=== PATIENT | male | born 1940 | race Caucasian/White ===

== ENCOUNTER 2024-12-31 10:20 | Inpatient (IN) ==
[2024-12-31 12:52] LABS: MEAN PLATELET VOLUME 8.1 fL (7.4-11.0); RED CELL DISTRIBUTION WIDTH 20.2 % (11.6-16.5)
[2024-12-31 12:54] VITALS: BMI 31.6
[2024-12-31 13:01] LABS: INR 1.38 (0.8-1.3)
[2024-12-31 13:08] LABS: COR CA(FOR HYPOALB) 8.8 mg/dL (8.5-10.1); CREATININE 2.96 mg/dL (0.70-1.30); eGFR NON BLACK RACES 22 (>60)
[2024-12-31 13:25] LABS: PLATELET MORPHOLOGY COMMENT NORMAL (NORMAL)
[2024-12-31] MEDS ORDERED: CONSULT PHARMACY - POTASSIUM & MAGNESIUM XX SCH (15:00)
[2024-12-31] MEDS ORDERED: PHARMACY CONSULT XX SCH (15:00)
--- NOTE | 2024-12-31 15:30 | EKG ---
Test Reason : sob Blood Pressure : */* mmHG Vent. Rate : 86 BPM Atrial Rate : 86 BPM P-R Int : 160 ms QRS Dur : 168 ms QT Int : 480 ms P-R-T Axes : 77 179 133 degrees QTc Int : 574 ms Atrial-sensed ventricular-paced rhythm Biventricular pacemaker detected Abnormal ECG When compared with ECG of 17-FEB-2023 10:42, Electronic ventricular pacemaker has replaced Sinus rhythm Confirmed by Urbano Amato MD ([id number]) on 12/31/2024 5:46:36 PM Referred By: Confirmed By: Urbano Amato MD
[2024-12-31] MEDS: K-DUR TAB 20 MEQ PO ONE (15:38)
[2024-12-31] MEDS: KLONOPIN TAB 0.5 MG PO ONE (15:38)
[2024-12-31] MEDS: LASIX IVP SCH (15:38)
[2024-12-31 16:06] LABS: BLOOD/HEMOGLOBIN,URINE NEGATIVE (NEGATIVE); LEUKOCYTE ESTERASE ,URINE 1+ (NEGATIVE); NITRITES,URINE NEGATIVE (NEGATIVE)
[2024-12-31 16:08] LABS: APPEARANCE,URINE CLEAR (CLEAR)
[2024-12-31 16:12] LABS: HYALINE CASTS, URINE FEW /LPF (NEGATIVE); SQUAMOUS EPITHELIAL CELL,UR RARE /HPF (NEGATIVE)
--- NOTE | 2024-12-31 19:20 | DR.H&P ---
H&P History & Physical for Day of: H&P Date: 12/31/24 Chief Complaint Chief Complaint: abdominal distention bilateral lower extremities swelling shortness of breath History of Present Illness History of Present Illness: Patient is a 84-year-old male with a past medical history of AICD, CHF, CAD, type 2 diabetes mellitus, and CKD presenting with bilateral lower extremity swelling, shortness of breath, and abdominal distention. Patient was recently discharged from [facility] in [place] last . He was admitted there for GI bleed. He had EGD and colonoscopy and per daughter there were no findings. His blood pressure remained in the lower range and his hemoglobin remained stable after home medications were held including antihypertensive medications and aspirin and Plavix. On discharge he was prescribed Lasix 40 mg twice daily, however he admits to not taking it but at 20 mg daily that was his original home dose. Per daughter, cardiologyDr. Bee office was contacted and they were told due to blood pressure readings to continue to hold antihypertensive medications at this time. Labs/imaging: WBC 7.8, hemoglobin 9.0, platelets 185, sodium 138, potassium 3.3, creatinine 2.96, glucose 109, BNP 3010, UA negative, chest x-ray pending, EKg pending. Patient was admitted for CHF exacerbation, hypokalemia, acute on chronic renal failure. He was started on IV Lasix 40 mg twice daily. Will monitor I's and O's. Replete electrolytes per protocol. Monitor renal function. Hold nephrotoxic agents. Blood pressure has been remained stable but on the lower end of normal range. Will continue to hold antihypertensive medications. Review and restart appropriate home medications. Patient is also having a lot of anxiety and states he has a history of depression. Will restart his home Lexapro and order Klonopin 3 times daily as needed. Will also order Restoril at night to help with sleep. Will order echo and KUB. Otherwise continue with current treatment plan. Continue closely monitor and follow-up labs/imaging. Time spent on clinical assessment, reviewing labs and imaging, decision making, and documentation greater than 45 minutes. Past Medical History Past Medical History: CHF, Coronary Artery Disease, Depression, Diabetes, GERD, Hypertension, CT and Renal Disease Past Surgical History Surgical History: Angioplasty/Stents and CABG/Valve Surgery Family History Family Medical History: Diabetes Mellitus, Cancer, CT, Coronary Artery Disease, Heart Failure and Hypertension Social History Does patient currently use any type of tobacco product: No Type of Tobacco Use: None Does any household member use tobacco: No Alcohol Use: None Drug Use: None Medications Home Medications: Home Medications Medication Instructions Recorded Confirmed Type furosemide 40 mg tablet 20 mg PO DAILY PRN 10/10/19 12/31/24 History triamterene 37.5 1 tab PO DAILY 10/10/1912/20 History mg-hydrochlorothiazide 25 mg tablet dupilumab 300 mg/2 mL subcutaneous 300 mg subcut DAILY 02/17/23 12/31/24 History pen injector (Dupixent) escitalopram oxalate 20 mg tablet 20 mg PO DAILY 02/1712/31/24 History carvedilol 6.25 mg tablet 6.25 mg PO BID 12/22/2412/20 History famotidine 40 mg tablet 40 mg PO BID 12/22/24 History insulin glargine 100 See Rx Instructions .Route . COMPLEX 12/22/24 12/31/24 History unit-lixisenatide 33 mcg/mL subcutaneous pen ([place]iqua 100/33) pantoprazole 40 mg tablet,delayed 40 mg PO BID 5 12/31/24 History release (Protonix) sacubitril 24 mg-valsartan 26 mg 1 tab PO BID 12/22/24 12/31/24 History tablet (Entresto) clonazepam 0.5 mg tablet 0.5 mg PO HS 12/31/24 History Allergies Allergies Allergy/AdvReac Type Severity Reaction Status Date / Time iodine Allergy Verified 12/22/24 06:53 meperidine (From Mepergan) Allergy Verified 12/22/24 06:53 Penicillins Allergy Verified 12/22/24 06:53 promethazine (From Mepergan) Allergy Verified 12/22/24 06:53 shellfish derived Allergy Verified 12/22/24 06:53 Sulfa (Sulfonamide Allergy Verified 12/22/24 06:53 Antibiotics) (SULFA) Labs 12/31/24 12:43 12/31/24 12:43 Labs: Laboratory WBC 7.8 X10^3/uL (3.6-10.0) 12/31/24 12:43 RBC 2.95 X10^6/uL (4.7-6.0) L 12/31/24 12:43 Hgb 9.0 g/dL (13.5-18.0) L 12/31/24 12:43 Hct 27.0 % (42.0-54.0) L 12/31/24 12:43 MCV 91.6 fL (80.0-100.0) 12/31/24 12:43 MCH 30.5 pg (27.0-34.0) 12/31/24 12:43 MCHC 33.3 g/dL (33.0-35.0) 12/31/24 12:43 RDW 20.2 % (11.6-16.5) H 12/31/24 12:43 Plt Count 185 X10^3/uL (150.0-450.0) 12/31/24 12:43 Plt Count Comment Adequate (ADEQUATE) 12/31/24 12:43 MPV 8.1 fL (7.4-11.0) 12/31/24 12:43 Neut % (Auto) 75.4 % (42.0-75.0) H 12/31/24 12:43 Lymph % (Auto) 13.0 % (21.0-51.0) L 12/31/24 12:43 [place] % (Auto) 6.2 % (0.0-13.0) 12/31/24 12:43 Eos % (Auto) 4.6 % (0.9-2.9) H 12/31/24 12:43 Baso % (Auto) 0.8 % (0.2-1.0) 12/31/24 12:43 Neut # (Auto) 5.9 x10^3/uL (2.2-4.8) H 12/31/24 12:43 Lymph # (Auto) 1.0 X10^3/uL (1.3-2.9) L 12/31/24 12:43 [place] # (Auto) 0.5 x10^3/uL (0.3-0.8) 12/31/24 12:43 Eos # (Auto) 0.4 x10^3/uL (0.0-0.2) H 12/31/24 12:43 Baso # (Auto) 0.1 X10^3/uL (0.0-0.1) 12/31/24 12:43 Absolute Nucleated RBC 0.2 /100WBC 12/31/24 12:43 Plt Morphology Comment Normal (NORMAL) 12/31/24 12:43 RBC Morphology Abnormal (NORMAL) 12/31/24 12:43 Anisocytosis 1+ A 12/31/24 12:43 PT 17.1 SECONDS (11.8-14.3) 12/31/24 12:43 INR Target Range - 12/31/24 12:43 INR 1.38 (0.8-1.3) H 12/31/24 12:43 Sodium 138 mmol/L (136-145) 12/31/24 12:43 Corrected Sodium TNP 12/31/24 12:43 Potassium 3.3 mmol/L (3.5-5.1) L 12/31/24 12:43 Chloride 105 mmol/L (98-107) 12/31/24 12:43 Carbon Dioxide 20.0 mmol/L (21-32) L 12/31/24 12:43 BUN 49 mg/dL (7-18) H 12/31/24 12:43 Creatinine 2.96 mg/dL (0.70-1.30) H 12/31/24 12:43 Est GFR (MDRD) Af Amer 26 (>60) L 12/31/24 12:43 Est GFR (MDRD) Non-Af 22 (>60) L 12/31/24 12:43 Glucose 109 mg/dL (65-99) H 12/31/24 12:43 POC Glucose (mg/dL) 142 mg/dL (65-99) H 12/31/24 16:14 Calcium 7.9 mg/dL (8.5-10.1) L 12/31/24 12:43 Corrected Calcium 8.8 mg/dL (8.5-10.1) 12/31/24 12:43 Magnesium 2.4 mg/dL (2.0-2.9) 12/31/24 12:43 Total Bilirubin 0.50 mg/dL (0.2-1.0) 12/31/24 12:43 AST 21 Units/L (15-37) 12/31/24 12:43 ALT 20 Units/L (12-78) 12/31/24 12:43 Alkaline Phosphatase 67 Units/L (46-116) 12/31/24 12:43 B-Natriuretic Peptide 3010 pg/mL (0-79) H 12/31/24 12:43 Total Protein 6.2 g/dL (6.4-8.2) L 12/31/24 12:43 Albumin 2.9 g/dL (3.4-5.0) L 12/31/24 12:43 Globulin 3.3 g/dL (2.5-4.5) 12/31/24 12:43 Albumin/Globulin Ratio 0.9 Ratio (1.1-2.1) L 12/31/24 12:43 Specimen Type Clean catch urine 12/31/24 15:25 Urine Color Yellow (YELLOW) 12/31/24 15: Urine Appearance Clear (CLEAR) 12/31/24 15: Urine pH 5.0 (5.0 - 8.0) 12/31/24 15:25 Ur Specific [place] 1.015 (1.000-1.030) 12/31/24 15:25 Urine Protein 1+ (NEGATIVE) 12/31/24 15:25 Urine Glucose (UA) Negative (NEGATIVE) 12/31/24 15:25 Urine Ketones Negative (NEGATIVE) 12/31/24 15:25 Urine Blood Negative (NEGATIVE) 12/31/24 15:25 Urine Nitrite Negative (NEGATIVE) 12/31/24 15:25 Urine Bilirubin Negative (NEGATIVE) 12/31/24 15:25 Urine Urobilinogen Normal (NORMAL) 12/31/24 15:25 Ur Leukocyte Esterase 1+ (NEGATIVE) 12/31/24 15:25 Urine RBC None seen /HPF (0-3) 12/31/24 15:25 Urine WBC 0-2 /HPF (0-5) 12/31/24 15:25 Ur Squamous Epith Cells Rare /HPF (NEGATIVE) 12/31/24 15:25 Urine Bacteria Negative /HPF (NEGATIVE) 12/31/24 15:25 Hyaline Casts Few /LPF (NEGATIVE) 12/31/24 15:25 Ur Culture Indicated? No/not indicated 12/31/24 15:25 Review of Systems Constitutional: Weakness Eyes: No Symptoms Reported ENT: No Symptoms Reported Respiratory: Shortness of Breath Cardiovascular: Edema (2+ BLE) Gastrointestinal: Other (abdominal distention) Genitourinary: No Symptoms Reported Musculoskeletal: No Symptoms Reported Skin: No Symptoms Reported Neurological: No Symptoms Reported Physical Exam Vital Signs: Vital Signs Temperature 97.4 F Temperature 97.4 F Pulse Rate [Left Brachial] 88 Pulse Rate [Left Brachial] 89 Respiratory Rate 22 Respiratory Rate 22 Blood Pressure [Left Arm] 110/60 Blood Pressure [Left Arm] 104/58 O2 Sat by Pulse Oximetry 99 O2 Sat by Pulse Oximetry 100 Oriented: Normal Eyes: Normal Ear: Normal Nose: Normal Throat: Normal Respiratory: Clear Throughout Cardiovascular: Edema (2+ pitting edema b/l) : Normal Auscultation: Bowel Sounds: Normal Palpation: Other (abdominal distention) Tenderness: Normal Skin: Normal Musculoskeletal: Normal Psychiatric: Normal Mood Description: Calm and Appropriate Affect: Normal Speech Pattern: Clear and Appropriate Assessment/Plan (1) Acute exacerbation of CHF (congestive heart failure): Qualifiers: Heart failure type: unspecified Qualified Code(s): I50.9 - Heart failure, unspecified Status: Acute Plan: IV lasix 40mg BID monitor I's and O's (2) Acute on chronic renal failure: Qualifiers: Acute renal failure type: unspecified Chronic kidney disease stage: u nspecified stage Qualified Code(s): N17.9 - Acute kidney failure, unspecified; N18.9 - Chronic kidney disease, unspecified Status: Acute Plan: Monitor renal function Hold nephrotoxic agents (3) Hypokalemia: Status: Acute (4) Hypertension: Qualifiers: Hypertension type: primary hypertension Qualified Code(s): I10 - Essential (primary) hypertension Status: Acute Plan: hold home medications at this time (5) Coronary arteriosclerosis: Status: Acute (6) Diabetes mellitus type 2: Status: Acute Plan: restart medications, ssi (7) Gastroesophageal reflux disease: Status: Active (8) Depressive disorder: Status: Active Review H&P Reviewed: Yes Patient was examined?: Yes
[2024-12-31] MEDS: SNACK - Diabetic Appropriate PO SCH (20:00)
[2024-12-31] MEDS: KLONOPIN TAB 0.5 MG PO PRN (20:47)
[2024-12-31] MEDS: PEPCID TAB 40 MG PO SCH (20:47)
[2024-12-31] MEDS: PROTONIX INJ 40 MG VIAL IVP SCH (20:48)
[2024-12-31] MEDS ORDERED: KLONOPIN TAB 0.5 MG PO SCH (21:00)
[2024-12-31] MEDS ORDERED: PROTONIX TAB 40 MG PO SCH (21:00)
[2024-12-31] MEDS: RESTORIL CAP 15 MG PO PRN (22:00)
[2025-01-01 06:08] LABS: COR CA(FOR HYPOALB) 8.9 mg/dL (8.5-10.1); CREATININE 2.97 mg/dL (0.70-1.30); eGFR NON BLACK RACES 22 (>60)
[2025-01-01 06:33] LABS: MEAN PLATELET VOLUME 8.3 fL (7.4-11.0); RED CELL DISTRIBUTION WIDTH 19.9 % (11.6-16.5)
[2025-01-01] MEDS: LEXAPRO PO SCH (08:09)
[2025-01-01] MEDS: PEPCID TAB 20 MG PO SCH (08:10)
[2025-01-01] MEDS: LEXAPRO ONE (08:10)
[2025-01-01] MEDS: LASIX IVP SCH (08:10)
--- NOTE | 2025-01-01 08:27 | RAD ---
EXAMINATION: KUB HISTORY: abdominal distension; . COMPARISON STUDY: None. TECHNIQUE: 2 supine AP views of the abdomen and pelvis FINDINGS: Mild amount of bowel-gas and feces. Visualized soft tissue outlines and osseous structures appear intact. Lumbar spondylosis. Mild degenerative changes hip joints bilaterally. IMPRESSION: Mild amount of bowel-gas and feces. THIS IS AN ELECTRONICALLY VERIFIED FINAL REPORT 01/01/2025 8:23 AM - Electronically signed by Tamera Calixto MD
[2025-01-01] MEDS ORDERED: PLAVIX PO SCH (09:00)
--- NOTE | 2025-01-01 09:24 | RAD ---
EXAM: Portable chest HISTORY: Congestive heart failure COMPARISON: 02/17/2023 FINDINGS: Patient is status post median sternotomy and CABG. There is a pacemaker present on the left obscuring a portion of the lateral left mid lung. Heart is enlarged. No definite congestive heart failure is identified. No definite pleural effusions are identified. No definite acute infiltrates identified. Bony thorax is unremarkable. IMPRESSION: Cardiomegaly without definite congestive heart failure No acute infiltrates THIS IS AN ELECTRONICALLY VERIFIED FINAL REPORT 01/01/2025 9:21 AM - Electronically signed by Tristan Richard MD
--- NOTE | 2025-01-01 09:34 | PCM.PROG ---
Progress Note Progress Note for Day of Date of Exam: 01/01/25 Subjective Subjective: Patient seen at bedside, no acute events overnight. He is currently admitted for anemia, LYNDA and CHF exacerbation. He reports feeling slightly better. His lower extremity edema has improved with IV Lasix. His hemoglobin is stable. He has not had any melena or bloody stools. His last BM was this morning. He did have complete workup for anemia in [place] recently, EGD and colonoscopy which were both negative. He he was told to stop Plavix and aspirin. His blood pressure has also been low, was told to stop Entresto and carvedilol. Labs and imaging reviewed: - WBC 7.2 hemoglobin 9.0 platelet 176 potassium 3.6 creatinine 2.97 glucose 87 - UA negative - Chest x-ray: cardiomegaly - KUB feces noted Plan: Continue telemetry. Continue IV Lasix, monitor I's and O's and daily weight. Echocardiogram ordered. Monitor blood pressure. Hold other anti- hypertensives at this time. Replace electrolytes as per protocol. Continue other home medications. Physical therapy as tolerated. Continue SSI. Monitor a.m. labs and imaging. Past Medical Family Social History Allergies: Allergies iodine Allergy (Verified 12/22/24 06:53) meperidine (From Mepergan) Allergy (Verified 12/22/24 06:53) Penicillins Allergy (Verified 12/22/24 06:53) promethazine (From Mepergan) Allergy (Verified 12/22/24 06:53) shellfish derived Allergy (Verified 12/22/24 06:53) Sulfa (Sulfonamide Antibiotics) (SULFA) Allergy (Verified 12/22/24 06:53) Vital Signs and I&O's Vital Signs: Vital Signs Temperature 97.8 F Temperature 98.8 F Pulse Rate [Left Brachial] 77 Pulse Rate [Left Brachial] 86 Respiratory Rate 19 Respiratory Rate 19 Blood Pressure [Left Arm] 99/53 Blood Pressure [Left Arm] 126/56 O2 Sat by Pulse Oximetry 98 O2 Sat by Pulse Oximetry 99 Intake and Output: Intake & Output 12/29/24 12/30/24 12/31/24 01/01/25 23:59 23:59 23:59 23:59 Intake Total 320 / 320 50 / 50 Output Total 400 / 400 300 / 300 Balance -80 / -80 -250 / -250 Physical Exam Oriented: Normal Eyes: Normal Ear: Normal Nose: Normal Throat: Normal Cardiovascular: Edema (2+ pitting edema b/l) Auscultation: Bowel Sounds: Normal Palpation: Normal Tenderness: Normal Skin: Normal Musculoskeletal: Normal Psychiatric: Normal Mood Description: Calm and Appropriate Affect: Normal Speech Pattern: Clear and Slurred Laboratory and Diagnostics 01/01/25 06:21 01/01/25 05:26 Labs: Laboratory WBC 7.2 X10^3/uL (3.6-10.0) 01/01/25 06:21 RBC 2.93 X10^6/uL (4.7-6.0) L 01/01/25 06:21 Hgb 9.0 g/dL (13.5-18.0) L 01/01/25 06:21 Hct 26.8 % (42.0-54.0) L 01/01/25 06:21 MCV 91.4 fL (80.0-100.0) 01/01/25 06:21 MCH 30.7 pg (27.0-34.0) 01/01/25 06:21 MCHC 33.6 g/dL (33.0-35.0) 01/01/25 06:21 RDW 19.9 % (11.6-16.5) H 01/01/25 06:21 Plt Count 176 X10^3/uL (150.0-450.0) 01/01/25 06:21 Plt Count Comment Adequate (ADEQUATE) 12/31/24 12:43 MPV 8.3 fL (7.4-11.0) 01/01/25 06:21 Neut % (Auto) 72.1 % (42.0-75.0) 01/01/25 06:21 Lymph % (Auto) 16.0 % (21.0-51.0) L 01/01/25 06:21 [place] % (Auto) 6.5 % (0.0-13.0) 01/01/25 06:21 Eos % (Auto) 4.3 % (0.9-2.9) H 01/01/25 06:21 Baso % (Auto) 1.1 % (0.2-1.0) H 01/01/25 06:21 Neut # (Auto) 5.2 x10^3/uL (2.2-4.8) H 01/01/25 06:21 Lymph # (Auto) 1.1 X10^3/uL (1.3-2.9) L 01/01/25 06:21 [place] # (Auto) 0.5 x10^3/uL (0.3-0.8) 01/01/25 06:21 Eos # (Auto) 0.3 x10^3/uL (0.0-0.2) H 01/01/25 06:21 Baso # (Auto) 0.1 X10^3/uL (0.0-0.1) 01/01/25 06:21 Absolute Nucleated RBC 0.2 /100WBC 01/01/25 06:21 Plt Morphology Comment Normal (NORMAL) 12/31/24 12:43 RBC Morphology Abnormal (NORMAL) 12/31/24 12:43 Anisocytosis 1+ A 12/31/24 12:43 PT 17.1 SECONDS (11.8-14.3) 12/31/24 12:43 INR Target Range - 12/31/24 12:43 INR 1.38 (0.8-1.3) H 12/31/24 12:43 Sodium 139 mmol/L (136-145) 01/01/25 05:26 Corrected Sodium TNP 01/01/25 05:26 Potassium 3.6 mmol/L (3.5-5.1) 01/01/25 05:26 Chloride 107 mmol/L (98-107) 01/01/25 05:26 Carbon Dioxide 20.8 mmol/L (21-32) L 01/01/25 05:26 BUN 50 mg/dL (7-18) H 01/01/25 05:26 Creatinine 2.97 mg/dL (0.70-1.30) H 01/01/25 05:26 Est GFR (MDRD) Af Amer 26 (>60) L 01/01/25 05:26 Est GFR (MDRD) Non-Af 22 (>60) L 01/01/25 05:26 Glucose 87 mg/dL (65-99) 01/01/25 05:26 POC Glucose (mg/dL) 81 mg/dL (65-99) 01/01/25 05:22 Calcium 7.9 mg/dL (8.5-10.1) L 01/01/25 05:26 Corrected Calcium 8.9 mg/dL (8.5-10.1) 01/01/25 05:26 Magnesium 2.4 mg/dL (2.0-2.9) 12/31/24 12:43 Total Bilirubin 0.50 mg/dL (0.2-1.0) 01/01/25 05:26 AST 26 Units/L (15-37) 01/01/25 05:26 ALT 22 Units/L (12-78) 01/01/25 05:26 Alkaline Phosphatase 65 Units/L (46-116) 01/01/25 05:26 B-Natriuretic Peptide 3010 pg/mL (0-79) H 12/31/24 12:43 Total Protein 5.8 g/dL (6.4-8.2) L 01/01/25 05:26 Albumin 2.8 g/dL (3.4-5.0) L 01/01/25 05:26 Globulin 3.0 g/dL (2.5-4.5) 01/01/25 05:26 Albumin/Globulin Ratio 0.9 Ratio (1.1-2.1) L 01/01/25 05:26 Specimen Type Clean catch urine 12/31/24 15:25 Urine Color Yellow (YELLOW) 12/31/24 15:25 Urine Appearance Clear (CLEAR) 12/31/24 15:25 Urine pH 5.0 (5.0 - 8.0) 12/31/24 15:25 Ur Specific [place] 1.015 (1.000-1.030) 12/31/24 15:25 Urine Protein 1+ (NEGATIVE) 12/31/24 15:25 Urine Glucose (UA) Negative (NEGATIVE) 12/31/24 15:25 Urine Ketones Negative (NEGATIVE) 12/31/24 15:25 Urine Blood Negative (NEGATIVE) 12/31/24 15: Urine Nitrite Negative (NEGATIVE) 12/31/24 15:25 Urine Bilirubin Negative (NEGATIVE) 12/31/24 15:25 Urine Urobilinogen Normal (NORMAL) 12/31/24 15:25 Ur Leukocyte Esterase 1+ (NEGATIVE) 12/31/24 15:25 Urine RBC None seen /HPF (0-3) 12/31/24 15:25 Urine WBC 0-2 /HPF (0-5) 12/31/24 15:25 Ur Squamous Epith Cells Rare /HPF (NEGATIVE) 12/31/24 15:25 Urine Bacteria Negative /HPF (NEGATIVE) 12/31/24 15:25 Hyaline Casts Few /LPF (NEGATIVE) 12/31/24 15:25 Ur Culture Indicated? No/not indicated 12/31/24 15:25 Plan (1) Acute exacerbation of CHF (congestive heart failure): Status: Acute Qualifiers: Heart failure type: unspecified Qualified Code(s): I50.9 - Heart failure, unspecified (2) Acute on chronic renal failure: Status: Acute Qualifiers: Acute renal failure type: unspecified Chronic kidney disease stage: u nspecified stage Qualified Code(s): N17.9 - Acute kidney failure, unspecified; N18.9 - Chronic kidney disease, unspecified Plan: Monitor renal function Hold nephrotoxic agents (3) Hypokalemia: Status: Acute (4) Hypertension: Status: Acute Qualifiers: Hypertension type: primary hypertension Qualified Code(s): I10 - Essential (primary) hypertension Plan: hold home medications at this time (5) Coronary arteriosclerosis: Status: Chronic (6) Diabetes mellitus type 2: Status: Chronic Plan: restart medications, ssi (7) Gastroesophageal reflux disease: Status: Active (8) Depressive disorder: Status: Active
[2025-01-01] MEDS ORDERED: CONSULT PHARMACY - POTASSIUM & MAGNESIUM XX SCH (10:00)
[2025-01-01] MEDS: KLOR-CON 10 MEQ TAB PO NR (10:31)
[2025-01-01] MEDS: MIRALAX POWDER (1 DOSE 17 G) PO SCH (20:22)
[2025-01-01] MEDS: NovoLIN R (or HumuLIN R) SUBCUT PRN (20:51)
[2025-01-02 05:54] LABS: MEAN PLATELET VOLUME 8.5 fL (7.4-11.0); RED CELL DISTRIBUTION WIDTH 20.9 % (11.6-16.5)
[2025-01-02 06:06] LABS: COR CA(FOR HYPOALB) 9.0 mg/dL (8.5-10.1); COR NA(FOR HYPERGLY) 140.0 mmol/L (136-145); CREATININE 3.03 mg/dL (0.70-1.30); eGFR NON BLACK RACES 21.0 (>60)
[2025-01-02 06:20] LABS: PLATELET MORPHOLOGY COMMENT NORMAL (NORMAL)
[2025-01-02] MEDS ORDERED: LEXAPRO ONE (08:42)
[2025-01-02] MEDS: PEPCID TAB 20 MG PO SCH (09:22)
--- NOTE | 2025-01-02 11:13 | PCM.PROG ---
Progress Note Progress Note for Day of Date of Exam: 01/02/25 Subjective Subjective: Patient resting in bed this morning. He is currently admitted for anemia, LYNDA and CHF exacerbation. He continues to slowly gradually improve. His lower extremity edema has improved with IV Lasix. His hemoglobin is stable. He did have complete workup for anemia in [place] recently, EGD and colonoscopy which were both negative. He was told to stop Plavix and aspirin. His blood pressure has also been low, was told to stop Entresto and carvedilol. He does have a defibrillator/pacemaker. Labs and imaging reviewed: - WBC 6.7 hemoglobin 8.4, platelet 168, Na 140, potassium 3.5, creatinine 3.03, glucose 118 - Echo pending, EF 25%? - Chest x-ray: cardiomegaly - KUB feces noted Plan: Continue telemetry. Continue IV Lasix, monitor I's and O's and daily weight. Monitor blood pressure. Hold other anti-hypertensives at this time. Replace electrolytes as per protocol. Continue other home medications. Physical therapy as tolerated. Continue SSI. Monitor a.m. labs and imaging. Past Medical Family Social History Allergies: Allergies iodine Allergy (Verified 12/22/24 06:53) meperidine (From Mepergan) Allergy (Verified 12/22/24 06:53) Penicillins Allergy (Verified 12/22/24 06:53) promethazine (From Mepergan) Allergy (Verified 12/22/24 06:53) shellfish derived Allergy (Verified 12/22/24 06:53) Sulfa (Sulfonamide Antibiotics) (SULFA) Allergy (Verified 12/22/24 06:53) Review of Systems ROS changes noted: see HPI Vital Signs and I&O's Vital Signs: Vital Signs Temperature 97.0 F Temperature 97.8 F Pulse Rate [Left Brachial] 78 Pulse Rate [Left Brachial] 84 Respiratory Rate 19 Respiratory Rate 21 Blood Pressure [Left Arm] 111/65 Blood Pressure [Left Arm] 110/70 O2 Sat by Pulse Oximetry 100 O2 Sat by Pulse Oximetry 96 Intake and Output: Intake & Output 12/30/24 12/31/24 01/01/25 01/02/25 23:59 23:59 23:59 23:59 Intake Total 320 / 320 590 / 590 130 / 130 Output Total 400 / 400 1200 / 1200 200 / 200 Balance -80 / -80 -610 / -610 -70 / -70 Physical Exam Oriented: Normal Eyes: Normal Ear: Normal Nose: Normal Throat: Normal Respiratory: Normal Cardiovascular: Edema (2+ pitting edema b/l) : Normal Auscultation: Bowel Sounds: Normal Tenderness: Normal Skin: Normal Musculoskeletal: Normal Psychiatric: Normal Mood Description: Calm and Appropriate Affect: Normal Speech Pattern: Clear Laboratory and Diagnostics 01/02/25 05:15 01/02/25 05:15 Labs: Laboratory WBC 6.7 X10^3/uL (3.6-10.0) 01/02/25 05:15 RBC 2.73 X10^6/uL (4.7-6.0) L 01/02/25 05:15 Hgb 8.4 g/dL (13.5-18.0) L 01/02/25 05:15 Hct 25.0 % (42.0-54.0) L 01/02/25 05:15 MCV 91.5 fL (80.0-100.0) 01/02/25 05:15 MCH 30.7 pg (27.0-34.0) 01/02/25 05:15 MCHC 33.6 g/dL (33.0-35.0) 01/02/25 05:15 RDW 20.9 % (11.6-16.5) H 01/02/25 05:15 Plt Count 168 X10^3/uL (150.0-450.0) 01/02/25 05:15 Plt Count Comment Adequate (ADEQUATE) 01/02/25 05:15 MPV 8.5 fL (7.4-11.0) 01/02/25 05:15 Neut % (Auto) 72.3 % (42.0-75.0) 01/02/25 05:15 Lymph % (Auto) 12.0 % (21.0-51.0) L 01/02/25 05:15 Sutter % (Auto) 8.2 % (0.0-13.0) 01/02/25 05:15 Eos % (Auto) 6.3 % (0.9-2.9) H 01/02/25 05:15 Baso % (Auto) 1.2 % (0.2-1.0) H 01/02/25 05:15 Neut # (Auto) 4.8 x10^3/uL (2.2-4.8) 01/02/25 05:15 Lymph # (Auto) 0.8 X10^3/uL (1.3-2.9) L 01/02/25 05:15 Sutter # (Auto) 0.5 x10^3/uL (0.3-0.8) 01/02/25 05:15 Eos # (Auto) 0.4 x10^3/uL (0.0-0.2) H 01/02/25 05:15 Baso # (Auto) 0.1 X10^3/uL (0.0-0.1) 01/02/25 05:15 Absolute Nucleated RBC 0.1 /100WBC 01/02/25 05:15 Plt Morphology Comment Normal (NORMAL) 01/02/25 05:15 RBC Morphology Abnormal (NORMAL) 01/02/25 05:15 Anisocytosis 1+ A 01/02/25 05:15 PT 17.1 SECONDS (11.8-14.3) 12/31/24 12:43 INR Target Range - 12/31/24 12:43 INR 1.38 (0.8-1.3) H 12/31/24 12:43 Sodium 140 mmol/L (136-145) 01/02/25 05:15 Corrected Sodium 140 mmol/L (136-145) 01/02/25 05:15 Potassium 3.5 mmol/L (3.5-5.1) 01/02/25 05:15 Chloride 107 mmol/L (98-107) 01/02/25 05:15 Carbon Dioxide 25.0 mmol/L (21-32) 01/02/25 05:15 BUN 45 mg/dL (7-18) H 01/02/25 05:15 Creatinine 3.03 mg/dL (0.70-1.30) H 01/02/25 05:15 Est GFR (MDRD) Af Amer 25 (>60) L 01/02/25 05:15 Est GFR (MDRD) Non-Af 21 (>60) L 01/02/25 05:15 Glucose 118 mg/dL (65-99) H 01/02/25 05:15 POC Glucose (mg/dL) 117 mg/dL (65-99) H 01/02/25 05:15 Calcium 7.9 mg/dL (8.5-10.1) L 01/02/25 05:15 Corrected Calcium 9.0 mg/dL (8.5-10.1) 01/02/25 05:15 Magnesium 2.4 mg/dL (2.0-2.9) 01/02/25 05:15 Total Bilirubin 0.40 mg/dL (0.2-1.0) 01/02/25 05:15 AST 14 Units/L (15-37) L 01/02/25 05:15 ALT 16 Units/L (12-78) 01/02/25 05:15 Alkaline Phosphatase 63 Units/L (46-116) 01/02/25 05:15 B-Natriuretic Peptide 3010 pg/mL (0-79) H 12/31/24 12:43 Total Protein 5.7 g/dL (6.4-8.2) L 01/02/25 05:15 Albumin 2.6 g/dL (3.4-5.0) L 01/02/25 05:15 Globulin 3.1 g/dL (2.5-4.5) 01/02/25 05:15 Albumin/Globulin Ratio 0.8 Ratio (1.1-2.1) L 01/02/25 05:15 Specimen Type Clean catch urine 12/31/24 15:25 Urine Color Yellow (YELLOW) 12/31/24 15:25 Urine Appearance Clear (CLEAR) 12/31/24 15:25 Urine pH 5.0 (5.0 - 8.0) 12/31/24 15:25 Ur Specific Mclean 1.015 (1.000-1.030) 12/31/24 15:25 Urine Protein 1+ (NEGATIVE) 12/31/24 15:25 Urine Glucose (UA) Negative (NEGATIVE) 12/31/24 15:25 Urine Ketones Negative (NEGATIVE) 12/31/24 15:25 Urine Blood Negative (NEGATIVE) 12/31/24 15:25 Urine Nitrite Negative (NEGATIVE) 12/31/24 15:25 Urine Bilirubin Negative (NEGATIVE) 12/31/24 15:25 Urine Urobilinogen Normal (NORMAL) 12/31/24 15:25 Ur Leukocyte Esterase 1+ (NEGATIVE) 12/31/24 15:25 Urine RBC None seen /HPF (0-3) 12/31/24 15:25 Urine WBC 0-2 /HPF (0-5) 12/31/24 15:25 Ur Squamous Epith Cells Rare /HPF (NEGATIVE) 12/31/24 15:25 Urine Bacteria Negative /HPF (NEGATIVE) 12/31/24 15:25 Hyaline Casts Few /LPF (NEGATIVE) 12/31/24 15:25 Ur Culture Indicated? No/not indicated 12/31/24 15:25 Plan (1) Acute exacerbation of CHF (congestive heart failure): Status: Acute Qualifiers: Heart failure type: unspecified Qualified Code(s): I50.9 - Heart failure, unspecified Plan: IV lasix 40mg BID monitor I's and O's (2) Acute on chronic renal failure: Status: Acute Qualifiers: Acute renal failure type: unspecified Chronic kidney disease stage: u nspecified stage Qualified Code(s): N17.9 - Acute kidney failure, unspecified; N18.9 - Chronic kidney disease, unspecified Plan: Monitor renal function Hold nephrotoxic agents (3) Hypokalemia: Status: Acute (4) Hypertension: Status: Acute Qualifiers: Hypertension type: primary hypertension Qualified Code(s): I10 - Essential (primary) hypertension Plan: hold home medications at this time (5) Coronary arteriosclerosis: Status: Chronic (6) Diabetes mellitus type 2: Status: Chronic Plan: restart medications, ssi (7) Gastroesophageal reflux disease: Status: Active (8) Depressive disorder: Status: Active
[2025-01-02] MEDS: MAALOX or MYLANTA PO PRN (16:10)
[2025-01-02] MEDS: LASIX PO SCH (16:45)
[2025-01-03 05:33] VITALS: RESP 21
[2025-01-03 05:55] LABS: MEAN PLATELET VOLUME 8.4 fL (7.4-11.0); RED CELL DISTRIBUTION WIDTH 19.7 % (11.6-16.5)
[2025-01-03 06:09] LABS: COR CA(FOR HYPOALB) 8.9 mg/dL (8.5-10.1); COR NA(FOR HYPERGLY) 141.0 mmol/L (136-145); CREATININE 3.04 mg/dL (0.70-1.30); eGFR NON BLACK RACES 21.0 (>60)
[2025-01-03] MEDS ORDERED: CONSULT PHARMACY - POTASSIUM & MAGNESIUM XX SCH (07:00)
[2025-01-03 08:43] VITALS: BP 107/53; PULSE 77; TEMP 97.8; O2SAT 100
[2025-01-03] MEDS ORDERED: LEXAPRO ONE (09:30)
[2025-01-03] MEDS: PROTONIX TAB 40 MG PO SCH (09:50)
[2025-01-03] MEDS: KLOR-CON 10 MEQ TAB PO ONE (09:51)
--- NOTE | 2025-01-03 19:11 | W.DIS.FURT ---
Summary of Discharge Discharge Summary of Date Date of Exam: 01/03/25 Admission Date Date of Admission: 12/31/24 Admission Diagnosis Hospital Course: Patient is a 84 y/o male who was directly admitted for lower extremity edema, acute on chronic renal failure and anemia. Patient recently had anemia workup including EGD and colonoscopy in [place]. All the results were normal. He denies any active bleeding. He did have worsening lower extremity edema and shortness of breath. He was admitted for CHF exacerbation and LYNDA. He was started on IV Lasix, daily weights and strict I's and O's. His labs were monitored daily and electrolytes replaced as needed. His hemoglobin remained stable. Physical therapy was also consulted and recommended correction facility. Patient preferred to do swing bed here at the hospital. He will be transition over to swing bed for physical therapy. Vital Signs: Vital Signs (72 hours) 12/31/24 20:00 01/01/25 00:00 01/01/25 04:00 Temperature 97.9 F 98.0 F 98.8 F Pulse Rate [Left Brachial] 86 80 86 Respiratory Rate 20 19 19 Blood Pressure [Left Arm] 113/59 131/60 126/56 O2 Sat by Pulse Oximetry 98 100 99 Oxygen Delivery Method Nasal Cannula Nasal Cannula Nasal Cannula Oxygen Flow Rate 2 2 2 FIO2% 01/01/25 07:00 01/01/25 07:55 01/01/25 09:48 Temperature 97.8 F Pulse Rate [Left Brachial] 77 Respiratory Rate 19 Blood Pressure [Left Arm] 99/53 O2 Sat by Pulse Oximetry 98 Oxygen Delivery Method Nasal Cannula Nasal Cannula Nasal Cannula Oxygen Flow Rate 2 2 3 FIO2% 32 01/01/25 12:00 01/01/25 15:37 01/01/25 19:00 Temperature 97.1 F L 97.1 F L Pulse Rate [Left Brachial] 85 75 Respiratory Rate 19 22 Blood Pressure [Left Arm] 103/60 108/58 O2 Sat by Pulse Oximetry 100 100 Oxygen Delivery Method Nasal Cannula Nasal Cannula Nasal Cannula Oxygen Flow Rate 2 2 2 FIO2% 01/01/25 20:00 01/01/25 20:35 01/02/25 00:00 Temperature 97.3 F L 97.8 F Pulse Rate [Left Brachial] 90 86 Respiratory Rate 21 21 Blood Pressure [Left Arm] 119/63 98/72 O2 Sat by Pulse Oximetry 100 100 Oxygen Delivery Method Nasal Cannula Nasal Cannula Nasal Cannula Oxygen Flow Rate 2 3 2 FIO2% 32 01/02/25 04:00 01/02/25 07:00 01/02/25 08:00 Temperature 97.8 F 97.0 F L Pulse Rate [Left Brachial] 84 78 Respiratory Rate 21 19 Blood Pressure [Left Arm] 110/70 111/65 O2 Sat by Pulse Oximetry 96 100 Oxygen Delivery Method Nasal Cannula Nasal Cannula Nasal Cannula Oxygen Flow Rate 2 2 2 FIO2% 01/02/25 09:28 01/02/25 09:34 01/02/25 12:00 Temperature Pulse Rate [Left Brachial] 81 Respiratory Rate 20 Blood Pressure [Left Arm] 110/57 O2 Sat by Pulse Oximetry 100 Oxygen Delivery Method Nasal Cannula Room Air Nasal Cannula Oxygen Flow Rate 3 2 FIO2% 32 01/02/25 15:35 01/02/25 19:00 01/02/25 20:00 Temperature 97.6 F 97.4 F L Pulse Rate [Left Brachial] 86 86 Respiratory Rate 20 20 Blood Pressure [Left Arm] 115/60 97/52 O2 Sat by Pulse Oximetry 100 99 Oxygen Delivery Method Nasal Cannula Room Air Room Air Oxygen Flow Rate 2 FIO2% 01/02/25 21:00 01/02/25 21:05 01/02/25 23:55 Temperature 97.9 F Pulse Rate [Left Brachial] 76 Respiratory Rate 20 Blood Pressure [Left Arm] 109/64 104/57 O2 Sat by Pulse Oximetry 96 Oxygen Delivery Method Room Air Room Air Oxygen Flow Rate FIO2% 01/03/25 04:00 01/03/25 07:00 01/03/25 08:00 Temperature 98.0 F 97.8 F Pulse Rate [Left Brachial] 78 77 Respiratory Rate 21 21 Blood Pressure [Left Arm] 113/60 107/53 O2 Sat by Pulse Oximetry 94 L 100 Oxygen Delivery Method Room Air Room Air Room Air Oxygen Flow Rate FIO2% Labs: Laboratory Last Values WBC 7.5 X10^3/uL (3.6-10.0) 01/03/25 05:23 RBC 3.03 X10^6/uL (4.7-6.0) L 01/03/25 05:23 Hgb 9.3 g/dL (13.5-18.0) L 01/03/25 05:23 Hct 27.5 % (42.0-54.0) L 01/03/25 05:23 MCV 91.0 fL (80.0-100.0) 01/03/25 05:23 MCH 30.7 pg (27.0-34.0) 01/03/25 05:23 MCHC 33.7 g/dL (33.0-35.0) 01/03/25 05:23 RDW 19.7 % (11.6-16.5) H 01/03/25 05:23 Plt Count 183 X10^3/uL (150.0-450.0) 01/03/25 05:23 Plt Count Comment Adequate (ADEQUATE) 01/02/25 05:15 MPV 8.4 fL (7.4-11.0) 01/03/25 05:23 Neut % (Auto) 74.5 % (42.0-75.0) 01/03/25 05:23 Lymph % (Auto) 13.1 % (21.0-51.0) L 01/03/25 05:23 [place] % (Auto) 7.3 % (0.0-13.0) 01/03/25 05:23 Eos % (Auto) 3.8 % (0.9-2.9) H 01/03/25 05:23 Baso % (Auto) 1.3 % (0.2-1.0) H 01/03/25 05:23 Neut # (Auto) 5.6 x10^3/uL (2.2-4.8) H 01/03/25 05:23 Lymph # (Auto) 1.0 X10^3/uL (1.3-2.9) L 01/03/25 05:23 [place] # (Auto) 0.5 x10^3/uL (0.3-0.8) 01/03/25 05:23 Eos # (Auto) 0.3 x10^3/uL (0.0-0.2) H 01/03/25 05:23 Baso # (Auto) 0.1 X10^3/uL (0.0-0.1) 01/03/25 05:23 Absolute Nucleated RBC 0.2 /100WBC 01/03/25 05:23 Plt Morphology Comment Normal (NORMAL) 01/02/25 05:15 RBC Morphology Abnormal (NORMAL) 01/02/25 05:15 Anisocytosis 1+ A 01/02/25 05:15 PT 17.1 SECONDS (11.8-14.3) 12/31/24 12:43 INR Target Range - 12/31/24 12:43 INR 1.38 (0.8-1.3) H 12/31/24 12:43 Sodium 140 mmol/L (136-145) 01/03/25 05:23 Corrected Sodium 141 mmol/L (136-145) 01/03/25 05:23 Potassium 3.6 mmol/L (3.5-5.1) 01/03/25 05:23 Chloride 105 mmol/L (98-107) 01/03/25 05:23 Carbon Dioxide 23.3 mmol/L (21-32) 01/03/25 05:23 BUN 46 mg/dL (7-18) H 01/03/25 05:23 Creatinine 3.04 mg/dL (0.70-1.30) H 01/03/25 05:23 Est GFR (MDRD) Af Amer 25 (>60) L 01/03/25 05:23 Est GFR (MDRD) Non-Af 21 (>60) L 01/03/25 05:23 Glucose 145 mg/dL (65-99) H 01/03/25 05:23 POC Glucose (mg/dL) 167 mg/dL (65-99) H 01/03/25 10:49 Calcium 8.1 mg/dL (8.5-10.1) L 01/03/25 05:23 Corrected Calcium 8.9 mg/dL (8.5-10.1) 01/03/25 05:23 Magnesium 2.4 mg/dL (2.0-2.9) 01/03/25 05:23 Total Bilirubin 0.50 mg/dL (0.2-1.0) 01/03/25 05:23 AST 16 Units/L (15-37) 01/03/25 05:23 ALT 17 Units/L (12-78) 01/03/25 05:23 Alkaline Phosphatase 70 Units/L (46-116) 01/03/25 05:23 B-Natriuretic Peptide 3010 pg/mL (0-79) H 12/31/24 12:43 Total Protein 6.4 g/dL (6.4-8.2) 01/03/25 05:23 Albumin 3.0 g/dL (3.4-5.0) L 01/03/25 05:23 Globulin 3.4 g/dL (2.5-4.5) 01/03/25 05:23 Albumin/Globulin Ratio 0.9 Ratio (1.1-2.1) L 01/03/25 05:23 Specimen Type Clean catch urine 12/31/24 15:25 Urine Color Yellow (YELLOW) 12/31/24 15:25 Urine Appearance Clear (CLEAR) 12/31/24 15:25 Urine pH 5.0 (5.0 - 8.0) 12/31/24 15:25 Ur Specific [place] 1.015 (1.000-1.030) 12/31/24 15: Urine Protein 1+ (NEGATIVE) 12/31/24 15: Urine Glucose (UA) Negative (NEGATIVE) 12/31/24 15: Urine Ketones Negative (NEGATIVE) 12/31/24 15: Urine Blood Negative (NEGATIVE) 12/31/24 15:25 Urine Nitrite Negative (NEGATIVE) 12/31/24 15:25 Urine Bilirubin Negative (NEGATIVE) 12/31/24 15:25 Urine Urobilinogen Normal (NORMAL) 12/31/24 15:25 Ur Leukocyte Esterase 1+ (NEGATIVE) 12/31/24 15:25 Urine RBC None seen /HPF (0-3) 12/31/24 15:25 Urine WBC 0-2 /HPF (0-5) 12/31/24 15:25 Ur Squamous Epith Cells Rare /HPF (NEGATIVE) 12/31/24 15:25 Urine Bacteria Negative /HPF (NEGATIVE) 12/31/24 15: Hyaline Casts Few /LPF (NEGATIVE) 12/31/24 15:25 Ur Culture Indicated? No/not indicated 12/31/24 15:25 Reason For Visit: ACUTE ON CHRONIC KIDNEY INJURY, ANEMIA Discharge Diagnosis All Active Problems (Updated 01/03/25 @ 19:02 by Gibson Larose MD) Generalized weakness (Acute) Hypokalemia (Acute) Acute on chronic renal failure (Acute) Acute exacerbation of CHF (congestive heart failure) (Acute) Acute upper gastrointestinal bleeding (Acute) Acute pancreatitis (Acute) Chronic renal insufficiency (Acute) Acute non-ST elevation myocardial infarction (NSTEMI) (Acute) Chronic stable angina (Acute) Hypertension (Acute) Angina at rest (Acute) Depressive disorder (Active) Gastroesophageal reflux disease (Active) Coronary arteriosclerosis (Chronic) History of - hypertension (Active) Diabetes mellitus type 2 (Chronic) Plan of Treatment: Continue with present treatment and follow up plan. Pt is to keep follow up appointment as instructed and take medications as ordered. Discharge Medications Discharge Medications: iodine Allergy (Verified 12/22/24 06:53) meperidine (From Mepergan) Allergy (Verified 12/22/24 06:53) Penicillins Allergy (Verified 12/22/24 06:53) promethazine (From Mepergan) Allergy (Verified 12/22/24 06:53) shellfish derived Allergy (Verified 12/22/24 06:53) Sulfa (Sulfonamide Antibiotics) (SULFA) Allergy (Verified 12/22/24 06:53) CONTINUE taking the following medications clonazepam 0.5 mg tablet 0.5 mg PO HS 12/31/24 [History] Discharge Disposition Discharge Disposition: swing bed Discharge Condition: stable Discharge Plan Discharge Plan Hospital Course: Patient is a 84 y/o male who was directly admitted for lower extremity edema, acute on chronic renal failure and anemia. Patient recently had anemia workup including EGD and colonoscopy in [place]. All the results were normal. He denies any active bleeding. He did have worsening lower extremity edema and shortness of breath. He was admitted for CHF exacerbation and LYNDA. He was started on IV Lasix, daily weights and strict I's and O's. His labs were monitored daily and electrolytes replaced as needed. His hemoglobin remained stable. Physical therapy was also consulted and recommended correction facility. Patient preferred to do swing bed here at the hospital. He will be transition over to swing bed for physical therapy. Patient Disposition: 61 XFER/DISC TO [facility] Condition: Stable Health Concerns: Post Hospitalization: new medications and changes needed to prevent readmission or further decline. Pt educated and given instructions on all concerns. Plan of Treatment: Continue with present treatment and follow up plan. Pt is to keep follow up appointment as instructed and take medications as ordered. Prescriptions: No Action clopidogrel [Plavix] 75 MG tablet 75 mg PO DAILY Qty: 30 5RF Rx Instructions: ONE TABLET ONCE A DAY escitalopram oxalate 20 mg tablet 20 mg PO DAILY Dupixent Pen 300 mg/2 mL pen injector 300 mg SUBCUT DAILY Patient Comments: [NO ORIGINAL SIG] furosemide 40 mg Tablet 20 mg PO DAILY PRN Rx Instructions: take as needed triamterene-hydrochlorothiazid 37.5-25 mg Tablet 1 tab PO DAILY carvedilol 6.25 mg tablet 6.25 mg PO BID famotidine 40 mg tablet 40 mg PO BID pantoprazole [Protonix] 40 mg Tablet,Delayed Release (Dr/Ec) 40 mg PO BID Entresto 24-26 mg tablet 1 tab PO BID [place] 100/33 100 unit-33 mcg/mL insulin pen See Rx Instructions .ROUTE .COMPLEX Patient Comments: [NO ORIGINAL SIG] Rx Instructions: 26 units daily clonazepam 0.5 mg tablet 0.5 mg PO HS Follow ups/Referrals Follow ups/Referrals: Dacia Nobles MD [Primary Care Provider, Unknown] - 1 WEEK Instructions Stand Alone Forms: Excuse From Work or School, Find Help Web Site, Post Hospital Follow Up Care Print Language: UKRAINIAN
[2025-01-04] MEDS ORDERED: PEPCID TAB 20 MG PO SCH (09:00)
== END 2025-01-03 09:59 | disposition swing bed (61) | DRG 292 ==
LOC: MED/SURG → OBSVTOIN 11:56
PROVIDERS: ADMIT Internal Medicine; ATTEND Internal Medicine
DX: N18.9 Chronic kidney disease, unspecified; Z79.4 Long term (current) use of insulin; R26.89 Other abnormalities of gait and mobility; E87.6 Hypokalemia; Z95.0 Presence of cardiac pacemaker; Z95.5 Presence of coronary angioplasty implant and graft; N17.8 Other acute kidney failure; I50.89 Other heart failure; R94.31 Abnormal electrocardiogram [ECG] [EKG]; F41.8 Other specified anxiety disorders; R94.4 Abnormal results of kidney function studies; Z95.2 Presence of prosthetic heart valve; L97.919 Non-pressure chronic ulcer of unspecified part of right lower leg with unspecified severity; E11.622 Type 2 diabetes mellitus with other skin ulcer; I25.2 Old myocardial infarction; R60.0 Localized edema; E11.65 Type 2 diabetes mellitus with hyperglycemia; K21.9 Gastro-esophageal reflux disease without esophagitis; F32.89 Other specified depressive episodes; L89.151 Pressure ulcer of sacral region, stage 1; R79.1 Abnormal coagulation profile; D64.89 Other specified anemias; I13.0 Hypertensive heart and chronic kidney disease with heart failure and stage 1 through stage 4 chronic kidney disease, or unspecified chronic kidney disease; R06.02 Shortness of breath; I25.810 Atherosclerosis of coronary artery bypass graft(s) without angina pectoris

== ENCOUNTER 2025-01-03 10:00 | Inpatient (IN) ==
[2025-01-03] MEDS ORDERED: MAALOX or MYLANTA PO PRN (12:13)
--- NOTE | 2025-01-03 13:56 | PT/OTEVAL ---
PT/OT OBJECTIVES - HISTORY Prescription: OT Consult Diagnosis: Deconditioned s/p CHF exacerbation Precautions: Fall Risk, Pacemaker/Defibrillator PMH: GI Bleed, CKD Stage 3, Cataracts, CAD, CHF, [place], Pacemaker/Defibrillator, HTN, HLD, Bypass/Stents, GERD, Hiatal Hernia, DM2, Anemia, Hx Skin Cancer, Anxiety Prior Level of Function: Independent Other: Per pt report, pt lives with his in a 1 [address]roy home with no steps. (I) with ADLs and IADLs, he was mowing the lawn the week before getting ill. Pt is driving. DME includes potty chair. History of Present Illness: Pt presenting to [facility] with bilateral lower extremity swelling, shortness of breath, and abdominal distention. Patient was recently discharged from [facility] in [place] last . He was admitted there for GI bleed. He had EGD and colonoscopy and per daughter there were no findings. His blood pressure remained in the lower range and his hemoglobin remained stable after home medications were held including antihypertensive medications and aspirin and Plavix. On discharge he was prescribed Lasix 40 mg twice daily, however he admits to not taking it but at 20 mg daily that was his original home dose. Per daughter, cardiologyDr. Bee office was contacted and they were told due to blood pressure readings to continue to hold antihypertensive medications at this time. Patient was admitted for CHF exacerbation, hypokalemia, acute on chronic renal failure. He was started on IV Lasix 40 mg twice daily. Blood pressure has been remained stable but on the lower end of normal range. - COGNITION Mental Status: Alert, Name Communication Status: Verbal Ability to Follow Directions: 2 Step Affect: Calm - PAIN No signs of pain Pain Scale: No Pain Comments: No reports of pain, just anxiety. - TRANSFERS Sit to Stand: Minimal Sit or Stand Pivot: Minimal Toileting: Minimal - ADL'S Upper Body ADL: Supervision Lower Body ADL: Maximum Toileting: Moderate Bathing: Moderate Bathing Comment: Overall Hygeine: Supervision - NEUROMOTOR/SENSATION Flaco. Lower Ext Sensation: Impaired Coordination: WFL Flaco. Upper Ext Sensation: WFL Coordination: WFL - HAND DOMINANCE Extremity Function: Hand Dominance: Right - ROM Bilateral UE ROM: WFL - STRENGTH Bilateral UE Strength Number: 4 Other comment: 4/5 Bilateral LE Strength Number: 3 Other comment: 3+/5 - GAIT Pt. ambulates how many feet?: 30 Amount of Assistance Required: (Touch) Type of Assistive Device: Rolling Walker Comments: Touch A with RW - TREATMENT Date: 01/03/25 Time: 11:15 Treatment Type: Evaluation Treatment Provided: Other - TOTAL TREATMENT TIME Total Time: 30 - POST ASSESSMENT Post Assessment Comment: Pt was seen for skilled OT to assess CLOF. Pt was in the bathroom upon arrival, getting dressed after shower. [employer] stated that he needed mod A for LB bathing and supv A for bathing. Pt was given max A for LB dressing and supv A for UB. STS from commode with min A. Pt functionally AMB with RW and touch A. Sitting in recliner, then STS with min/touch A and RW AMB ~ 30 feet. Pt tolerated well. Pt had all needs met and call light within reach. Family present. Pt demonstrates deficits with ADLs and ADL functional mobility. Pt would benefit from skilled OT services to address ADL deficits to facilitate highest level of ADL function needed for safe d/c planning. - EXIT DISPOSITION Exit Position: CHAIR Call light in reach: Yes PT/OT ASSESSMENT - OT Problem List: Decreased Mobility ADL's, Decreased Safety Aware, Decreased Dressing, Decreased Bathing, Decreased UE Strength - OT GOALS Chcf Goals Days: 20 Mobility for ADL's: Pt to improve functional standing balance to G/G Dressing: Pt to improve LB dressing to set up A Bathing: Pt to improve overall bathing to set up A Upper Ext. Strength/Use: Pt to improve MMT in BUE by 1 grade Short Term Goals Days: 10 Mobility for ADL's: Pt to improve functional ADL transfer to set up A and LRAD Dressing: Pt to improve UB dressing to (I) Bathing: Pt to improve overall bathing to supv A Other: Pt to improve FAT to G - PATIENT GOALS Patient/Family Goals: To feel better Goals Discussed with Patient/Family: Yes Rehabilitation Potential: Good to meet stated goals Justification for Potential: To facilitate highest level of ADL function needed for safe d/c planning - PLAN Suggested Treatment Plan: Therapeutic Activity, Self Care Training, Neuro Re- education, Therapeutic Ex with HEP, Patient Education, Family Education - FREQUENCY AND DURATION OT: 5x a week x hospital stay Expected Continuation of Care at Discharge: Determined on Progress
--- NOTE | 2025-01-03 14:06 | PT/OTEVAL ---
PT/OT OBJECTIVES - HISTORY Prescription: PT Consult Diagnosis: Deconditioning due to CHF Exacerbation Precautions: Fall Risk, Pacemaker/Defibrillator, 25% Ejection Fraction PMH: GI Bleed, CKD Stage 3, Cataracts, CAD, CHF, [place], Pacemaker/Defibrillator, HTN, HLD, Bypass/Stents, GERD, Hiatal Hernia, DM2, Anemia, Hx Skin Cancer, Anxiety Prior Level of Function: Independent Other: Prior to hospitalization last week in [place] pt was independent with all mobility tasks within home and community without a device. Pt lives with in single story home with small threshold to enter. Since return home (discharged on 12/26/2024), pt has been weak and requiring some assistance from family. History of Present Illness: Mr. Coy is an 84 year old male who was admitted to [facility] on 12/31/2024 due to CHF exacerbation, LYNDA and anemia. Pt was stabilized medically; however, with a decrease in strength and overall independence with mobility tasks and physician recommended swing bed rehab and pt and family in agreement. Prior to admission to this facility, pt was hospitalized in [place] (the week prior) for GI bleed and when he was discharged home he was requiring increased assistance with mobility tasks. Pt was transitioned to swing bed program on morning of 01/03/2025. - COGNITION Mental Status: Alert, Oriented, Name, Date, Place, Purpose Communication Status: Verbal, Hard of Hearing Ability to Follow Directions: 2 Step Identifies: Periods of anxiousness noted Affect: Anxious - PAIN No signs of pain Pain Scale: No Pain Comments: No reports of pain, just anxiety. - BED MOBILITY Rolling: Minimal - TRANSFERS Supine to Sit: Minimal Sit to Stand: Minimal Sit or Stand Pivot: Minimal Safety (requires cues for:): Hand Placement Precaution - BALANCE Static Sitting: Good Standing: Fair Balance Comment: Fair- Dynamic Sitting: Good Standing: Poor - NEUROMOTOR/SENSATION Flaco. 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 ambulates how many feet?: 30 Amount of Assistance Required: Minimal Type of Assistive Device: Rolling Walker Comments: Easily fatigues - TREATMENT Date: 01/03/25 Time: 13:15 Treatment Type: Evaluation Treatment Provided: Gait, Therapeutic Activities - TOTAL TREATMENT TIME Total Time: 60 - POST ASSESSMENT Post Assessment Comment: Pt was found in room and agreeable to participation in PT services. Pt confirmed information provided on history and PLOF. Pt reports that he is feeling some better. Pt performed bed mobility tasks with min assist, functional transfers with min assist (commode, recliner chair and EOB) and ambulated with FWW with min assist for 30ft. Pt easily fatigues and requires frequent therapeutic rest breaks throughout. Pt requires cues for deep breathing techniques. Pt education also provided on energy conservation. Review of swing bed program and goals with all questions answered. Pt would benefit from continued participation in PT services to address remaining deficits and facilitate highest level of function and safe discharge planning. - EXIT DISPOSITION Exit Position: CHAIR Call light in reach: Yes Comments: Family/friends present in room. PT/OT ASSESSMENT - PT Problem List: Decreased Bed Mobility, Decreased Transfers, Decreased Gait, Decreased Balance, Decreased Safety, Decreased LE Strength - OT Problem List: Other - PT GOALS Short Term Goals Days: 10 Mobility: Pt will perform bed mobility tasks with supervision Transfers: Pt will perform functional transfers with supervision Gait: Pt will ambulate 150ft with FWW with supervision Balance: Pt will increase static standing balance to good Snf Goals Days: 20 Mobility: Pt will perform bed mobility tasks with mod I Transfers: Pt will perform functional transfers with mod I Gait: Pt will ambulate 300ft with rollator and mod I Balance: Pt will increase dynamic standing balance to good ROM/Strength: Pt will increase BLE strength to 5/5 Others: Pt will ascend/descend 1 step with mod I - PATIENT GOALS Patient/Family Goals: "I just want to get better" Goals Discussed with Patient/Family: Yes Rehabilitation Potential: Good to meet stated goals Justification for Potential: Facilitate highest level of function and safe discharg eplanning If yes, explain: Medically complicated - PLAN Suggested Treatment Plan: Bed Mobility Training, Therapeutic Activity, Gait Training, Neuro Re-education, Therapeutic Ex with HEP, Patient Education, Family Education - FREQUENCY AND DURATION PT: 5x per week x 20 days Expected Continuation of Care at Discharge: Home Health Anticipated Equipment Needs: TBD pending participation and progress with therapy
[2025-01-03 17:08] VITALS: BMI 31.2
[2025-01-03] MEDS: LASIX PO SCH (17:10)
--- NOTE | 2025-01-03 19:02 | DR.H&P ---
H&P History & Physical for Day of: H&P Date: 01/03/25 Chief Complaint Chief Complaint: generalized weakness History of Present Illness History of Present Illness: Patient was recently hospitalized for CHF exacerbation and anemia. He was treated with IV lasix and Hgb was monitored closely. PT was consulted and recommended SNF placement. Patient prefers swing bed for rehab. Labs/imaging reviewed Plan: admit patient as swing bed. PT/OT as tolerated. Resume home medications. Continue PO lasix. Monitor labs prn. Replace electrolytes as per protocol. Past Medical History Past Medical History: CHF, Coronary Artery Disease, Depression, Diabetes, GERD, Hypertension, [place] and Renal Disease Past Surgical History Surgical History: Angioplasty/Stents and CABG/Valve Surgery Family History Family Medical History: Diabetes Mellitus, Cancer, [place], Coronary Artery Disease, Heart Failure and Hypertension Medications Home Medications: Home Medications Medication Instructions Recorded Confirmed Type furosemide 40 mg tablet 20 mg PO DAILY PRN 10/10/19 12/31/24 History triamterene 37.5 1 tab PO DAILY 10/10/1912/20 History mg-hydrochlorothiazide 25 mg tablet dupilumab 300 mg/2 mL subcutaneous 300 mg subcut DAILY 02/17/23 12/31/24 History pen injector (Dupixent) escitalopram oxalate 20 mg tablet 20 mg PO DAILY 02/1712/31/24 History carvedilol 6.25 mg tablet 6.25 mg PO BID 12/22/2412/20 History famotidine 40 mg tablet 40 mg PO BID 12/22/24 History insulin glargine 100 See Rx Instructions .Route . COMPLEX 12/22/24 12/31/24 History unit-lixisenatide 33 mcg/mL subcutaneous pen (Soliqua 100/33) pantoprazole 40 mg tablet,delayed 40 mg PO BID 5 12/31/24 History release (Protonix) sacubitril 24 mg-valsartan 26 mg 1 tab PO BID 12/22/24 12/31/24 History tablet (Entresto) clonazepam 0.5 mg tablet 0.5 mg PO HS 12/31/24 History Allergies Allergies Allergy/AdvReac Type Severity Reaction Status Date / Time iodine Allergy Verified 12/22/24 06:53 meperidine (From Mepergan) Allergy Verified 12/22/24 06:53 Penicillins Allergy Verified 12/22/24 06:53 promethazine (From Mepergan) Allergy Verified 12/22/24 06:53 shellfish derived Allergy Verified 12/22/24 06:53 Sulfa (Sulfonamide Allergy Verified 12/22/24 06:53 Antibiotics) (SULFA) Labs Labs: Laboratory POC Glucose (mg/dL) 176 mg/dL (65-99) H 01/03/25 15:28 Review of Systems Constitutional: Weakness Eyes: No Symptoms Reported Respiratory: Shortness of Breath Cardiovascular: Edema Gastrointestinal: No Symptoms Reported Genitourinary: No Symptoms Reported Musculoskeletal: Leg Pain Skin: No Symptoms Reported Neurological: No Symptoms Reported Oriented: Normal Respiratory: Diminished Throughout Cardiovascular: Normal and Edema Palpation: Normal Tenderness: Normal Skin: Normal Musculoskeletal: Normal Psychiatric: Normal Mood Description: Calm Affect: Normal Speech Pattern: Clear and Appropriate Assessment/Plan (1) Generalized weakness: Status: Acute (2) Acute exacerbation of CHF (congestive heart failure): Qualifiers: Heart failure type: unspecified Qualified Code(s): I50.9 - Heart failure, unspecified Status: Acute (3) Chronic renal insufficiency: Status: Acute (4) Hypertension: Qualifiers: Hypertension type: primary hypertension Qualified Code(s): I10 - Essential (primary) hypertension Status: Acute Review H&P Reviewed: Yes Patient was examined?: Yes
[2025-01-03] MEDS ORDERED: SNACK - Diabetic Appropriate PO SCH (20:00)
[2025-01-03] MEDS: MIRALAX POWDER (1 DOSE 17 G) PO SCH (21:22)
[2025-01-03] MEDS: NovoLIN R (or HumuLIN R) SUBCUT PRN (21:23)
[2025-01-03] MEDS: KLONOPIN TAB 0.5 MG PO PRN (21:37)
[2025-01-03] MEDS: SNACK - Diabetic Appropriate PO SCH (23:04)
[2025-01-04] MEDS: LEXAPRO PO SCH (09:53)
[2025-01-04] MEDS: PROTONIX TAB 40 MG PO SCH (09:53)
[2025-01-04] MEDS: PEPCID TAB 20 MG PO SCH (09:53)
[2025-01-04] MEDS: LEXAPRO ONE (11:00)
[2025-01-05] MEDS: LEXAPRO ONE (11:01)
--- NOTE | 2025-01-05 13:38 | RAD ---
EXAM: CHEST, PA/LAT ADULT HISTORY: hx chf; COMPARISON: 12/31/2024 TECHNIQUE: PA and lateral FINDINGS: Stable cardiomegaly. Median sternotomy wires. Left-sided ICD/pacer leads in place. Pulmonary vascular engorgement. Decreased hazy perihilar opacities. No large pleural effusion or visible pneumothorax. IMPRESSION: Pulmonary vascular engorgement without overt edema. THIS IS AN ELECTRONICALLY VERIFIED FINAL REPORT 01/05/2025 1:34 PM - Electronically signed by Brandon Garcia MD
[2025-01-05] MEDS: LASIX PO SCH (16:41)
[2025-01-06 05:51] LABS: MEAN PLATELET VOLUME 8.4 fL (7.4-11.0); RED CELL DISTRIBUTION WIDTH 19.2 % (11.6-16.5)
[2025-01-06 05:57] LABS: COR CA(FOR HYPOALB) 9.0 mg/dL (8.5-10.1); COR NA(FOR HYPERGLY) 140.0 mmol/L (136-145); CREATININE 3.04 mg/dL (0.70-1.30); eGFR NON BLACK RACES 21.0 (>60)
--- NOTE | 2025-01-06 10:40 | PCM.PROG ---
Progress Note Progress Note for Day of Date of Exam: 01/06/25 Subjective Subjective: Patient seen at bedside, no acute events overnight. He is feeling better. He has been working with physical therapy and able to ambulate with a walker. He is currently admitted to swing bed due to deconditioning and generalized weakness. Labs/imaging reviewed: - WBC 6.3 hemoglobin 9.3 platelet 153 potassium 3.9 creatinine 3.04 - Chest x-ray no acute changes Plan: Continue current treatment. Monitor labs as needed. Continue physical and Occupational Therapy. Fall precautions. Continue home medications. Replace electrolytes as per protocol. Monitor labs as needed. Past Medical Family Social History Allergies: Allergies iodine Allergy (Verified 12/22/24 06:53) meperidine (From Mepergan) Allergy (Verified 12/22/24 06:53) Penicillins Allergy (Verified 12/22/24 06:53) promethazine (From Mepergan) Allergy (Verified 12/22/24 06:53) shellfish derived Allergy (Verified 12/22/24 06:53) Sulfa (Sulfonamide Antibiotics) (SULFA) Allergy (Verified 12/22/24 06:53) Vital Signs and I&O's Intake and Output: Intake & Output 01/03/25 01/04/25 01/05/25 01/06/25 23:59 23:59 23:59 23:59 Intake Total 760 / 760 730 / 730 260 / 260 0 / 0 Balance 760 / 760 730 / 730 260 / 260 0 / 0 Physical Exam Oriented: Normal Respiratory: Normal Cardiovascular: Normal and Edema Palpation: Normal Tenderness: Normal Skin: Normal Musculoskeletal: Normal Psychiatric: Normal Mood Description: Calm Affect: Normal Speech Pattern: Clear and Appropriate Laboratory and Diagnostics 01/06/25 05:28 01/06/25 05:28 Labs: Laboratory WBC 6.3 X10^3/uL (3.6-10.0) 01/06/25 05:28 RBC 3.12 X10^6/uL (4.7-6.0) L 01/06/25 05:28 Hgb 9.3 g/dL (13.5-18.0) L 01/06/25 05:28 Hct 28.3 % (42.0-54.0) L 01/06/25 05:28 MCV 90.6 fL (80.0-100.0) 01/06/25 05:28 MCH 29.8 pg (27.0-34.0) 01/06/25 05:28 MCHC 32.8 g/dL (33.0-35.0) L 01/06/25 05:28 RDW 19.2 % (11.6-16.5) H 01/06/25 05:28 Plt Count 153 X10^3/uL (150.0-450.0) 01/06/25 05:28 MPV 8.4 fL (7.4-11.0) 01/06/25 05:28 Neut % (Auto) 80.0 % (42.0-75.0) H 01/06/25 05:28 Lymph % (Auto) 10.7 % (21.0-51.0) L 01/06/25 05:28 [place] % (Auto) 7.7 % (0.0-13.0) 01/06/25 05:28 Eos % (Auto) 0.8 % (0.9-2.9) L 01/06/25 05:28 Baso % (Auto) 0.8 % (0.2-1.0) 01/06/25 05:28 Neut # (Auto) 5.0 x10^3/uL (2.2-4.8) H 01/06/25 05:28 Lymph # (Auto) 0.7 X10^3/uL (1.3-2.9) L 01/06/25 05:28 [place] # (Auto) 0.5 x10^3/uL (0.3-0.8) 01/06/25 05:28 Eos # (Auto) 0.0 x10^3/uL (0.0-0.2) 01/06/25 05:28 Baso # (Auto) 0.0 X10^3/uL (0.0-0.1) 01/06/25 05:28 Absolute Nucleated RBC 0.1 /100WBC 01/06/25 05:28 Sodium 138 mmol/L (136-145) 01/06/25 05:28 Corrected Sodium 140 mmol/L (136-145) 01/06/25 05:28 Potassium 3.9 mmol/L (3.5-5.1) 01/06/25 05:28 Chloride 102 mmol/L (98-107) 01/06/25 05:28 Carbon Dioxide 26.0 mmol/L (21-32) 01/06/25 05:28 BUN 48 mg/dL (7-18) H 01/06/25 05:28 Creatinine 3.04 mg/dL (0.70-1.30) H 01/06/25 05:28 Est GFR (MDRD) Af Amer 25 (>60) L 01/06/25 05:28 Est GFR (MDRD) Non-Af 21 (>60) L 01/06/25 05:28 Glucose 179 mg/dL (65-99) H 01/06/25 05:28 POC Glucose (mg/dL) 175 mg/dL (65-99) H 01/06/25 05:27 Calcium 8.1 mg/dL (8.5-10.1) L 01/06/25 05:28 Corrected Calcium 9.0 mg/dL (8.5-10.1) 01/06/25 05:28 Total Bilirubin 0.50 mg/dL (0.2-1.0) 01/06/25 05:28 AST 18 Units/L (15-37) 01/06/25 05:28 ALT 17 Units/L (12-78) 01/06/25 05:28 Alkaline Phosphatase 66 Units/L (46-116) 01/06/25 05:28 Total Protein 6.4 g/dL (6.4-8.2) 01/06/25 05:28 Albumin 2.9 g/dL (3.4-5.0) L 01/06/25 05:28 Globulin 3.5 g/dL (2.5-4.5) 01/06/25 05:28 Albumin/Globulin Ratio 0.8 Ratio (1.1-2.1) L 01/06/25 05:28 Plan (1) Generalized weakness: Status: Acute (2) Acute exacerbation of CHF (congestive heart failure): Status: Acute Qualifiers: Heart failure type: unspecified Qualified Code(s): I50.9 - Heart failure, unspecified (3) Chronic renal insufficiency: Status: Acute Qualifiers: Chronic kidney disease stage: unspecified stage Qualified Code(s): N 18.9 - Chronic kidney disease, unspecified (4) Hypertension: Status: Chronic Qualifiers: Hypertension type: primary hypertension Qualified Code(s): I10 - Essential (primary) hypertension
[2025-01-06] MEDS: LEXAPRO ONE (14:34)
[2025-01-06] MEDS: RESTORIL CAP 15 MG PO PRN (20:20)
[2025-01-06] MEDS: TYLENOL 325 MG TAB PO PRN (23:11)
[2025-01-07] MEDS: LEXAPRO ONE (07:58)
[2025-01-08 05:50] LABS: MEAN PLATELET VOLUME 8.6 fL (7.4-11.0); RED CELL DISTRIBUTION WIDTH 19.3 % (11.6-16.5)
[2025-01-08 06:05] LABS: COR CA(FOR HYPOALB) 9.1 mg/dL (8.5-10.1); COR NA(FOR HYPERGLY) 136.0 mmol/L (136-145); CREATININE 3.37 mg/dL (0.70-1.30); eGFR NON BLACK RACES 19.0 (>60)
[2025-01-08] MEDS ORDERED: LEXAPRO ONE (08:12)
[2025-01-08] MEDS: LASIX PO SCH (09:08)
--- NOTE | 2025-01-08 09:34 | PCM.PROG ---
Progress Note Progress Note for Day of Date of Exam: 01/08/25 Subjective Subjective: Patient seen at bedside, no acute events overnight. He has been doing well. He continues to work with physical therapy. He does have a chronic wound in his sacral area, images reviewed. He also had a blister on his right lower leg which has been covered with dressing. He still does not have much appetite. His renal function has slightly worsened. Labs/imaging reviewed: - WBC 6.8 hemoglobin 10.1 potassium 3.5 creatinine 3.37 Plan: Will change Lasix to 40 mg daily. Continue other home medications. Repeat BMP in the morning. Encourage p.o. intake. Add Ensure. Consult general surgery for chronic sacral wound. Continue wound care as appropriate. Replace electrolytes as per protocol. PT/OT as tolerated. Monitor labs. Past Medical Family Social History Allergies: Allergies iodine Allergy (Verified 12/22/24 06:53) meperidine (From Mepergan) Allergy (Verified 12/22/24 06:53) Penicillins Allergy (Verified 12/22/24 06:53) promethazine (From Mepergan) Allergy (Verified 12/22/24 06:53) shellfish derived Allergy (Verified 12/22/24 06:53) Sulfa (Sulfonamide Antibiotics) (SULFA) Allergy (Verified 12/22/24 06:53) Vital Signs and I&O's Intake and Output: Intake & Output 01/05/25 01/06/25 01/07/25 01/08/25 23:59 23:59 23:59 23:59 Intake Total 260 / 260 600 / 600 650 / 650 400 / 400 Balance 260 / 260 600 / 600 650 / 650 400 / 400 Physical Exam Oriented: Normal Respiratory: Normal Cardiovascular: Normal and Edema Auscultation: Bowel Sounds: Normal Palpation: Normal Tenderness: Normal Skin: Normal Musculoskeletal: Normal Psychiatric: Normal Mood Description: Calm Affect: Normal Speech Pattern: Clear and Appropriate Laboratory and Diagnostics 01/08/25 05:21 01/08/25 05:21 Labs: Laboratory WBC 6.8 X10^3/uL (3.6-10.0) 01/08/25 05:21 RBC 3.40 X10^6/uL (4.7-6.0) L 01/08/25 05:21 Hgb 10.1 g/dL (13.5-18.0) L 01/08/25 05:21 Hct 30.2 % (42.0-54.0) L 01/08/25 05:21 MCV 88.8 fL (80.0-100.0) 01/08/25 05:21 MCH 29.6 pg (27.0-34.0) 01/08/25 05:21 MCHC 33.3 g/dL (33.0-35.0) 01/08/25 05:21 RDW 19.3 % (11.6-16.5) H 01/08/25 05:21 Plt Count 164 X10^3/uL (150.0-450.0) 01/08/25 05:21 MPV 8.6 fL (7.4-11.0) 01/08/25 05:21 Neut % (Auto) 78.1 % (42.0-75.0) H 01/08/25 05:21 Lymph % (Auto) 12.0 % (21.0-51.0) L 01/08/25 05:21 [place] % (Auto) 5.1 % (0.0-13.0) 01/08/25 05:21 Eos % (Auto) 3.0 % (0.9-2.9) H 01/08/25 05:21 Baso % (Auto) 1.8 % (0.2-1.0) H 01/08/25 05:21 Neut # (Auto) 5.3 x10^3/uL (2.2-4.8) H 01/08/25 05:21 Lymph # (Auto) 0.8 X10^3/uL (1.3-2.9) L 01/08/25 05:21 [place] # (Auto) 0.3 x10^3/uL (0.3-0.8) 01/08/25 05:21 Eos # (Auto) 0.2 x10^3/uL (0.0-0.2) 01/08/25 05:21 Baso # (Auto) 0.1 X10^3/uL (0.0-0.1) 01/08/25 05:21 Absolute Nucleated RBC 0.3 /100WBC 01/08/25 05:21 Sodium 135 mmol/L (136-145) L 01/08/25 05:21 Corrected Sodium 136 mmol/L (136-145) 01/08/25 05:21 Potassium 3.5 mmol/L (3.5-5.1) 01/08/25 05:21 Chloride 99 mmol/L (98-107) 01/08/25 05:21 Carbon Dioxide 23.7 mmol/L (21-32) 01/08/25 05:21 BUN 57 mg/dL (7-18) H 01/08/25 05:21 Creatinine 3.37 mg/dL (0.70-1.30) H 01/08/25 05:21 Est GFR (MDRD) Af Amer 23 (>60) L 01/08/25 05:21 Est GFR (MDRD) Non-Af 19 (>60) L 01/08/25 05:21 Glucose 144 mg/dL (65-99) H 01/08/25 05:21 POC Glucose (mg/dL) 134 mg/dL (65-99) H 01/08/25 05:04 Calcium 8.3 mg/dL (8.5-10.1) L 01/08/25 05:21 Corrected Calcium 9.1 mg/dL (8.5-10.1) 01/08/25 05:21 Total Bilirubin 0.50 mg/dL (0.2-1.0) 01/08/25 05:21 AST 21 Units/L (15-37) 01/08/25 05:21 ALT 23 Units/L (12-78) 01/08/25 05:21 Alkaline Phosphatase 80 Units/L (46-116) 01/08/25 05:21 Total Protein 6.6 g/dL (6.4-8.2) 01/08/25 05:21 Albumin 3.0 g/dL (3.4-5.0) L 01/08/25 05:21 Globulin 3.6 g/dL (2.5-4.5) 01/08/25 05:21 Albumin/Globulin Ratio 0.8 Ratio (1.1-2.1) L 01/08/25 05:21 Plan (1) Generalized weakness: Status: Acute (2) Acute exacerbation of CHF (congestive heart failure): Status: Acute Qualifiers: Heart failure type: unspecified Qualified Code(s): I50.9 - Heart failure, unspecified (3) Chronic renal insufficiency: Status: Acute Qualifiers: Chronic kidney disease stage: unspecified stage Qualified Code(s): N 18.9 - Chronic kidney disease, unspecified (4) Hypertension: Status: Chronic Qualifiers: Hypertension type: primary hypertension Qualified Code(s): I10 - Essential (primary) hypertension (5) Wound of sacral region: Status: Chronic Qualifiers: Encounter type: initial encounter Qualified Code(s): S31.000A - Unspecified open wound of lower back and pelvis without penetration into retroperitoneum, initial encounter
[2025-01-08] MEDS: PATIENT'S HOME MEDICATION SUBCUT ONE (14:09)
[2025-01-09 06:25] LABS: COR NA(FOR HYPERGLY) 136.0 mmol/L (136-145); CREATININE 3.17 mg/dL (0.70-1.30); eGFR NON BLACK RACES 20.0 (>60)
[2025-01-09] MEDS ORDERED: CONSULT PHARMACY - POTASSIUM & MAGNESIUM XX SCH (07:00)
[2025-01-09] MEDS ORDERED: LEXAPRO ONE (08:10)
[2025-01-09] MEDS: K-DUR TAB 20 MEQ PO SCH (08:58)
[2025-01-10 06:14] LABS: MEAN PLATELET VOLUME 8.4 fL (7.4-11.0); RED CELL DISTRIBUTION WIDTH 19.9 % (11.6-16.5)
[2025-01-10 06:33] LABS: COR CA(FOR HYPOALB) 9.3 mg/dL (8.5-10.1); COR NA(FOR HYPERGLY) 135.0 mmol/L (136-145); CREATININE 3.11 mg/dL (0.70-1.30); eGFR NON BLACK RACES 20.0 (>60)
[2025-01-10 07:57] VITALS: BP 109/59; PULSE 87; RESP 22; TEMP 97.3; O2SAT 99
[2025-01-10] MEDS: LEXAPRO ONE (08:13)
--- NOTE | 2025-01-14 10:15 | W.DIS.FURT ---
Summary of Discharge Discharge Summary of Date Date of Exam: 01/10/25 Admission Date Date of Admission: 01/03/25 Admission Diagnosis Hospital Course: Patient admitted as swing bed s/p chf exacebation. Patient sitting in recliner. He has been doing well. He received physical therapy. 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 He was receiving Lasix 40 mg daily. Continue other home medications. Pt was discharged home in stable condition, instructed to follow up with pcp in 1 week and cardiology outpatient. Vital Signs: Vital Signs (72 hours) 01/07/25 09:20 01/07/25 19:00 01/07/25 19:00 Temperature 97.5 F L Pulse Rate [Right Radial] 89 Respiratory Rate 19 Blood Pressure [Left Arm] 108/59 O2 Sat by Pulse Oximetry 100 Oxygen Delivery Method Room Air Room Air Room Air FIO2% 01/07/25 21:30 01/08/25 07:00 01/08/25 07:00 Temperature 97.4 F L Pulse Rate [Right Radial] 92 H Respiratory Rate 20 Blood Pressure [Left Arm] 105/60 O2 Sat by Pulse Oximetry 100 Oxygen Delivery Method Room Air Room Air Room Air FIO2% 21 01/08/25 09:04 01/08/25 19:00 01/08/25 19:00 Temperature 97.8 F Pulse Rate [Right Radial] 90 Respiratory Rate 18 Blood Pressure [Left Arm] 104/56 O2 Sat by Pulse Oximetry 100 Oxygen Delivery Method Room Air Room Air Room Air FIO2% 01/08/25 19:45 01/08/25 23:54 01/09/25 07:00 Temperature 97.6 F 97.5 F L Pulse Rate [Right Radial] 84 89 Respiratory Rate 17 17 Blood Pressure [Left Arm] 98/55 108/60 O2 Sat by Pulse Oximetry 96 99 Oxygen Delivery Method Room Air Room Air Room Air FIO2% 01/09/25 07:00 01/09/25 19:00 01/09/25 19:00 Temperature 97.8 F Pulse Rate [Right Radial] 99 H Respiratory Rate 19 Blood Pressure [Left Arm] 106/57 O2 Sat by Pulse Oximetry 100 Oxygen Delivery Method Room Air Room Air Room Air FIO2% 01/09/25 20:58 01/10/25 02:35 01/10/25 03:35 Temperature Pulse Rate [Right Radial] Respiratory Rate 20 20 Blood Pressure [Left Arm] O2 Sat by Pulse Oximetry Oxygen Delivery Method Room Air FIO2% 01/10/25 07:00 Temperature 97.3 F L Pulse Rate [Right Radial] 87 Respiratory Rate 22 Blood Pressure [Left Arm] 109/59 O2 Sat by Pulse Oximetry 99 Oxygen Delivery Method Room Air FIO2% Labs: Laboratory Last Values WBC 6.3 X10^3/uL (3.6-10.0) 01/10/25 05:44 RBC 3.47 X10^6/uL (4.7-6.0) L 01/10/25 05:44 Hgb 10.3 g/dL (13.5-18.0) L 01/10/25 05:44 Hct 30.8 % (42.0-54.0) L 01/10/25 05:44 MCV 88.8 fL (80.0-100.0) 01/10/25 05:44 MCH 29.7 pg (27.0-34.0) 01/10/25 05:44 MCHC 33.4 g/dL (33.0-35.0) 01/10/25 05:44 RDW 19.9 % (11.6-16.5) H 01/10/25 05:44 Plt Count 153 X10^3/uL (150.0-450.0) 01/10/25 05:44 MPV 8.4 fL (7.4-11.0) 01/10/25 05:44 Neut % (Auto) 70.7 % (42.0-75.0) 01/10/25 05:44 Lymph % (Auto) 16.4 % (21.0-51.0) L 01/10/25 05:44 [place] % (Auto) 7.4 % (0.0-13.0) 01/10/25 05:44 Eos % (Auto) 4.2 % (0.9-2.9) H 01/10/25 05:44 Baso % (Auto) 1.3 % (0.2-1.0) H 01/10/25 05:44 Neut # (Auto) 4.4 x10^3/uL (2.2-4.8) 01/10/25 05:44 Lymph # (Auto) 1.0 X10^3/uL (1.3-2.9) L 01/10/25 05:44 [place] # (Auto) 0.5 x10^3/uL (0.3-0.8) 01/10/25 05:44 Eos # (Auto) 0.3 x10^3/uL (0.0-0.2) H 01/10/25 05:44 Baso # (Auto) 0.1 X10^3/uL (0.0-0.1) 01/10/25 05:44 Absolute Nucleated RBC 0.1 /100WBC 01/10/25 05:44 Sodium 134 mmol/L (136-145) L 01/10/25 05:44 Corrected Sodium 135 mmol/L (136-145) L 01/10/25 05:44 Potassium 3.8 mmol/L (3.5-5.1) 01/10/25 05:44 Chloride 99 mmol/L (98-107) 01/10/25 05:44 Carbon Dioxide 24.7 mmol/L (21-32) 01/10/25 05:44 BUN 59 mg/dL (7-18) H 01/10/25 05:44 Creatinine 3.11 mg/dL (0.70-1.30) H 01/10/25 05:44 Est GFR (MDRD) Af Amer 25 (>60) L 01/10/25 05:44 Est GFR (MDRD) Non-Af 20 (>60) L 01/10/25 05:44 Glucose 130 mg/dL (65-99) H 01/10/25 05:44 POC Glucose (mg/dL) 127 mg/dL (65-99) H 01/10/25 05:33 Calcium 8.5 mg/dL (8.5-10.1) 01/10/25 05:44 Corrected Calcium 9.3 mg/dL (8.5-10.1) 01/10/25 05:44 Magnesium 2.8 mg/dL (2.0-2.9) 01/10/25 05:44 Magnesium Cancelled 01/10/25 05:44 Total Bilirubin 0.60 mg/dL (0.2-1.0) 01/10/25 05:44 AST 20 Units/L (15-37) 01/10/25 05:44 ALT 21 Units/L (12-78) 01/10/25 05:44 Alkaline Phosphatase 90 Units/L (46-116) 01/10/25 05:44 Total Protein 6.4 g/dL (6.4-8.2) 01/10/25 05:44 Albumin 3.0 g/dL (3.4-5.0) L 01/10/25 05:44 Globulin 3.4 g/dL (2.5-4.5) 01/10/25 05:44 Albumin/Globulin Ratio 0.9 Ratio (1.1-2.1) L 01/10/25 05:44 Reason For Visit: SWINGBED, DECONDITIONING S/P CHF EXACERBATION, Discharge Date Discharge Date: 01/10/25 Discharge Diagnosis All Active Problems (Updated 01/08/25 @ 09:34 by Dacia Nobles MD) Wound of sacral region (Chronic) Generalized weakness (Acute) Hypokalemia (Acute) Acute on chronic renal failure (Acute) Acute exacerbation of CHF (congestive heart failure) (Acute) Acute upper gastrointestinal bleeding (Acute) Acute pancreatitis (Acute) Chronic renal insufficiency (Acute) Acute non-ST elevation myocardial infarction (NSTEMI) (Acute) Chronic stable angina (Acute) Hypertension (Chronic) Angina at rest (Acute) Depressive disorder (Active) Gastroesophageal reflux disease (Active) Coronary arteriosclerosis (Chronic) History of - hypertension (Active) Diabetes mellitus type 2 (Chronic) Plan of Treatment: Continue with present treatment and follow up plan. Pt is to keep follow up appointment as instructed and take medications as ordered. Discharge Medications Discharge Medications: iodine Allergy (Verified 12/22/24 06:53) meperidine (From [place]) Allergy (Verified 12/22/24 06:53) Penicillins Allergy (Verified 12/22/24 06:53) promethazine (From [place]) Allergy (Verified 12/22/24 06:53) shellfish derived Allergy (Verified 12/22/24 06:53) Sulfa (Sulfonamide Antibiotics) (SULFA) Allergy (Verified 12/22/24 06:53) New Prescriptions furosemide 40 mg tablet 40 mg PO QDAY 30 days #30 tabs 01/10/25 [Rx] temazepam 15 mg capsule 15 mg PO HS PRN 30 days #30 caps 01/10/25 [Rx] Discharge Disposition Assessment: No distress noted. Discharge Plan Discharge Plan Hospital Course: Patient admitted as swing bed s/p chf exacebation. Patient sitting in recliner. He has been doing well. He received physical therapy. 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 He was receiving Lasix 40 mg daily. Continue other home medications. Pt was discharged home in stable condition, instructed to follow up with pcp in 1 week and cardiology outpatient. Patient Disposition: HOME HEALTH SERVICE Condition: Stable Health Concerns: Post Hospitalization: new medications and changes needed to prevent readmission or further decline. Pt educated and given instructions on all concerns. Care Plan Goals: Problem: Cardiac Complications Goal: Early Recognition of cardiac complications for prompt intervention Instructions: Follow provided instructions. Follow up with primary physician as directed. Contact primary care physician or report to the closest Emergency Room if condition worsens. Plan of Treatment: Continue with present treatment and follow up plan. Pt is to keep follow up appointment as instructed and take medications as ordered. Assessment: No distress noted. Prescriptions: New furosemide 40 mg Tablet 40 mg PO QDAY 30 Days Qty: 30 0RF temazepam 15 mg Capsule 15 mg PO HS MDD 1 PRN30 Days Qty: 30 0RF Continued escitalopram oxalate 20 mg tablet 20 mg PO DAILY Dupixent Pen 300 mg/2 mL pen injector 300 mg SUBCUT DAILY Patient Comments: [NO ORIGINAL SIG] famotidine 40 mg tablet 40 mg PO BID pantoprazole [Protonix] 40 mg Tablet,Delayed Release (Dr/Ec) 40 mg PO BID [place] 100/33 100 unit-33 mcg/mL insulin pen See Rx Instructions .ROUTE .COMPLEX Patient Comments: [NO ORIGINAL SIG] Rx Instructions: 26 units daily Discontinued clopidogrel [Plavix] 75 MG tablet 75 mg PO DAILY Qty: 30 5RF Rx Instructions: ONE TABLET ONCE A DAY furosemide 40 mg Tablet 20 mg PO DAILY PRN Rx Instructions: take as needed triamterene-hydrochlorothiazid 37.5-25 mg Tablet 1 tab PO DAILY carvedilol 6.25 mg tablet 6.25 mg PO BID Entresto 24-26 mg tablet 1 tab PO BID clonazepam 0.5 mg tablet 0.5 mg PO HS Follow ups/Referrals Follow ups/Referrals: [facility] [Other] Referral Note: Order for walker, BSC and gel cushision faxed. Family will corn picker. JOSEP LOREDOT [STAFF PHYSICIAN, Unknown] - 01/10/25 9:00 am Referral Note: Resume prior services with added aid along with nursing and therapy. Miky Britt [Primary Care Provider, MEDICAL] - 01/16/25 1:30 pm Instructions Instructions: Fall Prevention in the Home, Adult, [id number], Health Maintenance After Age 65, Deconditioning, Continuous Glucose Monitoring, Adult, How to Use a Walker, Heart Failure: How to Manage, Managing Your Hypertension Activity Restrictions/Additional Instructions: Pam N for medical management and wound monitoring with dressing change. Dressing orders: Lower extremity: Xeroform sheet to cover the wound and then apply 4X4 and ABDs and then wrap it with Noe and an CORA bandage. Sacral Ulcer: Apply wet to dry dressing on the sacral ulcer, use ABD and dress it daily. Encouraged to get out of bed and change position frequently and pay attention to his diet with proper control of his diabetes mellitus. There is no need for any surgical debridement right now. Stand Alone Forms: Find Help Web Site, Post Hospital Follow Up Care Print Language: [place]
== END 2025-01-10 09:45 | disposition home health service (06) | DRG 292 ==
LOC: MED/SURG 10:00
PROVIDERS: ADMIT Internal Medicine; ATTEND Internal Medicine
DX: L97.919 Non-pressure chronic ulcer of unspecified part of right lower leg with unspecified severity; Z95.2 Presence of prosthetic heart valve; N18.9 Chronic kidney disease, unspecified; I13.0 Hypertensive heart and chronic kidney disease with heart failure and stage 1 through stage 4 chronic kidney disease, or unspecified chronic kidney disease; K21.9 Gastro-esophageal reflux disease without esophagitis; I25.810 Atherosclerosis of coronary artery bypass graft(s) without angina pectoris; R60.0 Localized edema; R53.1 Weakness; L89.152 Pressure ulcer of sacral region, stage 2; N17.8 Other acute kidney failure; I25.2 Old myocardial infarction; R06.02 Shortness of breath; D64.89 Other specified anemias; R26.89 Other abnormalities of gait and mobility; I50.89 Other heart failure; Z95.0 Presence of cardiac pacemaker; E11.65 Type 2 diabetes mellitus with hyperglycemia; Z51.89 Encounter for other specified aftercare; Z95.5 Presence of coronary angioplasty implant and graft; Z79.4 Long term (current) use of insulin; E11.622 Type 2 diabetes mellitus with other skin ulcer